=== PATIENT | female | born 1960 | race Caucasian/White ===

== ENCOUNTER → 2022-03-08 | Outpatient (CLI) | payer OTHER ==
[~2022-03-08] MED LIST: ASPIRIN81 MG PO; BACITRACIN-POL3.5 GM OU; CETIRIZINE HCL10 MG PO; FLAGYL500 MG PO; GABAPENTIN800 MG PO; METFORMIN HCL500 MG PO; METOPROLOL TART25 MG PO; NYSTATIN1 EAC2 TOP; OMNICEF 300 MG300 MG PO; PEXEVA30 MG PO; PLAVIX 75 MG TA75 MG PO; PRAVASTATIN SOD40 MG PO; SYNTHROID125 MCG PO; TIZANIDINE HCL4 MG PO; VIBRAMYCIN100 MG PO; ZOFRAN ODT 4 MG4 MG PO
== END ==
LOC: WCC 07:44
DX: L30.4 Erythema intertrigo (principal); E11.628 Type 2 diabetes mellitus with other skin complications; J44.9 Chronic obstructive pulmonary disease, unspecified; E66.01 Morbid (severe) obesity due to excess calories; I50.9 Heart failure, unspecified; I25.10 Atherosclerotic heart disease of native coronary artery without angina pectoris; Z72.0 Tobacco use
CPT/HCPCS: G0463

== ENCOUNTER → 2022-03-17 | Outpatient (CLI) | payer OTHER | LOC: MAMO 11:13 | DX: Z12.31 Encounter for screening mammogram for malignant neoplasm of breast (principal) | CPT/HCPCS: 77063; 77067 ==